=== PATIENT | female | born 1970 ===

== ENCOUNTER 2021-06-04 13:02 | Emergency (ER) | payer BC ==
[2021-06-04] MEDS ORDERED: LORazepam 2 MG/ML SDV IM ONE (13:43)
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
[2021-06-04] MEDS ORDERED: Metoprolol Tartrate 50 MG Tab PO ONE (14:40)
[2021-06-04 17:13] VITALS: BP 155/91; PULSE 83
== END 2021-06-04 17:14 | disposition home or self-care (01) ==
LOC: MW.ED 13:02
DX: F41.9 Anxiety disorder, unspecified (principal); I10 Essential (primary) hypertension; Z79.899 Other long term (current) drug therapy
CPT/HCPCS: 96372; 99283; A9270; J2060